=== PATIENT | female | born 1940 | race Caucasian/White ===

== ENCOUNTER → 2019-06-04 | Outpatient (CLI) | payer MEDICARE ==
[~2019-06-04] MED LIST: AMINOPHYLLINE 250 MG/10 ML VIAL. ONE; REGADENOSON 0.4 MG/5 ML DISP.SYRIN. IV ONE
--- NOTE | 2019-06-04 17:00 | PCVCIMAG ---
APPROVED REPORT Imaging Protocol: Rest Tc-99m/Stress Tc-99m 1 day Study performed: 06/04/2019 12:56:16 Indication: Abnormal EKG, Elevated Troponin Patient Location: Out-Patient Stress Nurse: Ca Lozoya RN, Velia Jaime RN MT Tech:Junior CHARLOTTE EmersonMT Ht: 5 ft 1 in Wt: 154 lbs BSA: 1.69 m2 HR: 64 bpm BP: 147/68 mmHg BMI: 29.0 Rhythm: Sinus Rhythm Medical History Medical History: Age, Hyperlipidemia, HTN Medications: Amlodipine, ASA, Aricept, Losartan, Metoprolol, Pravastatin Allergies: Many - none related to test Pretest Chest Pain Characteristics: No chest pain Exercise History: Sedentary Meds Held (24 hrs): Metoprolol Resting Data Rest SPECT myocardial perfusion imaging was performed in supine position 45 minutes following the intravenous injection of 10.9 mCi of Tc-99m Sestamibi. Time of rest injection: 1255 Date: 06/04/2019 Administration Route: IV Administration Site: Right Arm Pharmacologic Stress Pharmacologic stress test was performed by injecting Regadenoson 0.4 mg IV push over 10-15 seconds immediately followed by the intravenous injection of 30.0 mCi of Tc-99m Sestamibi. Time of stress injection: 1415 Date: 06/04/2019 Administration Route: IV Administration Site: Right Arm Gated Stress SPECT was performed 45 minutes after stress injection. The images were gated to evaluate regional wall motion and calculate left ventricular ejection fraction. Stress Test Details Stress Test: Pharmacologic stress testing performed using 0.4 mg of regadenoson per 5 mL given IV over 10 seconds. Reason for pharmacologic stress test: physical limitation. Reversal agent Aminophyline 100 mg, given intravenously for nausea. HRMax Heart Rate (APMHR): 140 bpm Resting HR: 64 bpmTarget HR (85% APMHR): 119 bpm Max HR Achieved: 111 bpm % of APMHR: 79 Recovery HR: 86 bpm BP Resting BP: 147/68 mmHg Max BP: 172/75 mmHg Recovery BP: 158/70 mmHg ECG Resting ECG: Sinus Rhythm Stress ECG: Sinus Tachycardia Arrhythmia: VPC's Recovery ECG: Sinus Rhythm Clinical Reason for Termination: Completed protocol Stress Symptoms: Abdominal Discomfort, Dyspnea, Nausea, Flushing Exercise duration: min 55 sec Symptoms resolved during recovery with aminophylline. Stress ECG Conclusion ECG: Non-ischemic Study Quality Study: Good Study Data Post stress, the left ventricular ejection was 84%.. SSS: 0 SRS: 0 SDS: 0 TID = 1.00. Perfusion No evidence of stress induced ischemia or prior myocardial infarction. Wall Motion Normal left ventricular size and function with no regional wall motion abnormalities. Nuclear Conclusion No evidence of stress induced ischemia or prior myocardial infarction. Normal left ventricular size and function with no regional wall motion abnormalities. Post stress, the left ventricular ejection was 84%. No prior study available for comparison. Interpreted by: Mauri Valiente MD Electronically Approved: 06/04/2019 16:33:11 <Conclusion> ECG: Non-ischemic
== END | disposition home or self-care (01) ==
LOC: PCVCIMAG 13:19
PROVIDERS: ATTEND Internal Medicine Cardiovascular Disease
DX: R00.0 Tachycardia, unspecified (principal); R93.1 Abnormal findings on diagnostic imaging of heart and coronary circulation; R74.8 Abnormal levels of other serum enzymes; I10 Essential (primary) hypertension; E78.5 Hyperlipidemia, unspecified; Z88.0 Allergy status to penicillin; Z88.2 Allergy status to sulfonamides; Z88.1 Allergy status to other antibiotic agents
CPT/HCPCS: 78452; 93017; A9500; J0280; J2785